=== PATIENT | male | born 1960 | race Caucasian/White ===

== ENCOUNTER 2017-07-21 09:35 | Emergency (ER) | payer BC, OTHER ==
[2017-07-21 09:58] VITALS: BP 149/64; PULSE 64; TEMP 97.7; BMI 31.3
--- NOTE | 2017-07-21 12:57 | PDOC ---
History of Present Illness - General Chief Complaint: Injury Stated Complaint: PAIN/ LT SHOULDER, BACK Time Seen by Provider: 07/21/17 11:02 History Source: Patient Exam Limitations: No Limitations - History of Present Illness Initial Comments: Patient is a 57-year-old male with history of back problems presents emergency department for evaluation of right lateral upper posterior back pain. He reports was working and stepping up onto a bucket and the bucket gave way, he fell against wall hitting his right scapula against a wall. Denies any other injury. No shoulder pain, no neck pain. States ," My back got caught against the wall" ] Past Medical History: [Denies]. Allergies: No known allergies Medications: [Denies] Family History: Non-contributory Social History: Denies smoking, alcohol use, or IVDU Review of Systems GENERAL/CONSTITUTIONAL: [No fever or chills. No weakness. No weight change.] HEAD, EYES, EARS, NOSE AND THROAT: [No change in vision. No ear pain or discharge. No sore throat. ] CARDIOVASCULAR: [No chest pain or shortness of breath.] RESPIRATORY: [No cough, wheezing, or hemoptysis.] GASTROINTESTINAL: [No nausea, vomiting, diarrhea or constipation. No rectal bleeding.] GENITOURINARY: [No dysuria, frequency, or change in urination.] MUSCULOSKELETAL: [No joint or muscle swelling or pain. No neck pain, Right scapula pain.] SKIN: [No rash or easy bruising.] NEUROLOGIC: [No headache, vertigo, loss of consciousness, or loss of sensation.] PSYCHIATRIC: [No depression or anxiety.] ENDOCRINE: [No increased thirst. No abnormal weight change.] HEMATOLOGIC/LYMPHATIC: [No anemia, easy bleeding, or history of blood clots.] ALLERGIC/IMMUNOLOGIC: [No hives or skin allergy. No latex allergy.] Physical Exam: GENERAL: [The patient is awake, alert, and fully oriented, in no acute distress. ] HEAD: [Normal with no signs of trauma.] EYES: [Pupils equal, round and reactive to light, extraocular movements intact, sclera anicteric, conjunctiva clear.] ENT: [Ears normal, nares patent, oropharynx clear without exudates. Moist mucous membranes. No uvula deviation] NECK: [Normal range of motion, supple without lymphadenopathy, JVD, or masses.] LUNGS: [Breath sounds equal, clear to auscultation bilaterally. No wheezes, and no crackles.] HEART: [Regular rate and rhythm, normal S1 and S2 without murmur, rub or gallop. ] ABDOMEN: [Soft, nontender, normoactive bowel sounds. No guarding, no rebound. No masses. No bruising or abrasions] MUSCULOSKELETAL: [Normal range of motion, no edema. No clubbing or cyanosis. No cords, erythema, or tenderness. No CVA Tenderness with fist. Pain on palpation to the right scapula with no deformity, good ROM to the right shoulder with scapula pain. ] NEUROLOGICAL: [Cranial nerves II through XII grossly intact. Normal speech, normal gait.] PSYCH: [Normal mood, normal affect.] SKIN: [Warm, Dry, normal turgor, no rashes or lesions noted. No erythema, edema or bruising. ] Past History - Past Medical History Allergies/Adverse Reactions: Allergies Allergy/AdvReac Type Severity Reaction Status Date / Time No Known Allergies Allergy Verified 07/21/17 09:55 Home Medications: Ambulatory Orders Tramadol HCl 50 mg PO TID #14 tablet MDD 3 07/21/17 COPD: No Other medical history: back problems - Suicide/Smoking/Psychosocial Hx Smoking History: Never smoked Information on smoking cessation initiated: No Hx Alcohol Use: No Drug/Substance Use Hx: No Substance Use Type: None *Physical Exam - Vital Signs Last Vital Signs Temp Pulse Resp BP Pulse Ox 97.7 F 64 18 149/64 98 07/21/17 09:55 07/21/17 09:55 07/21/17 09:55 07/21/17 09:55 07/21/17 09:55 ED Treatment Course - RADIOLOGY Radiology Studies Ordered: Category Date Time Status RIBS-LEFT SIDE [RAD] Stat Radiology 07/21/17 11:11 Completed SCAPULA [RAD] Stat Radiology 07/21/17 11:10 Completed Medical Decision Making - Medical Decision Making 07/21/17 17:48 A/P: Patient status post mechanical fall there is pain to right scapula with good range of motion to her shoulder with associated pain. X-rays of scapula and ribs negative for acute fracture or dislocation. Arm sling given to patient because of increased pain will DC patient on Naprosyn with strict follow-up. I discussed the physical exam findings, ancillary test results and final diagnoses with the patient. I answered all of the patient's questions. The patient was satisfied with the care received and felt comfortable with the discharge plan and treatment plan. The patient will call to arrange follow-up and will return to the Emergency Department with any new, persistent or worsening symptoms. 07/21/17 17:50 *DC/Admit/Observation/Transfer Diagnosis at time of Disposition: Pain in scapula Fall Qualifiers: Encounter type: initial encounter Qualified Code(s): W19.XXXA - Unspecified fall, initial encounter - Discharge Dispostion Disposition: HOME Condition at time of disposition: Stable Admit: No - Prescriptions Prescriptions: Tramadol HCl 50 mg PO TID #14 tablet MDD 3 - Referrals Referrals: Fabiana Jesus MD [Primary Care Provider] - Jn Woods MD [Staff Physician] - - Patient Instructions Additional Instructions: 1. Please return to the emergency department with any numbness, tingling, weakness, numbness or tingling to groin or legs, or loss of bowel or bladder function. 2. Use pain medication as ordered. 3. Please is to followup in the office of [Chuck] for evaluation within a week if no improvement. 4. Ice or heat 5. Refrain from lifting anything above 10 pounds, until pain resolved. - Post Discharge Activity Forms/Work/School Notes: Back to Work
== END 2017-07-21 13:01 | disposition home or self-care (01) ==
LOC: JERFT 09:35
DX: M25.512 Pain in left shoulder (principal); W01.198A Fall on same level from slipping, tripping and stumbling with subsequent striking against other object, initial encounter; Y93.H9 Activity, other involving exterior property and land maintenance, building and construction; Y92.218 Other school as the place of occurrence of the external cause; Y99.0 Civilian activity done for income or pay
CPT/HCPCS: 71101-TC; 73010-TC; 99281-25

== ENCOUNTER 2017-10-01 07:45 | Day surgery (SDC) | payer BC, OTHER ==
[2017-09-24 12:16] VITALS: BMI 29.0
[2017-10-01] MEDS ORDERED: PROPOFOL 20 ML ONE ×2 (07:48)
[2017-10-01] MEDS ORDERED: LIDOCAINE HCL/PF 2% SDV 5ML VIAL ONE (07:48)
[2017-10-01 10:22] VITALS: BP 118/65; PULSE 80; TEMP 98
== END 2017-10-01 10:15 | disposition home or self-care (01) ==
LOC: FASU-ENDO 07:45
PROVIDERS: ATTEND Internal Medicine Gastroenterology
PROC: 0DJD8ZZ Inspection of Lower Intestinal Tract, Via Natural or Artificial Opening Endoscopic (ICD-10-PCS; principal; 2017-10-01 09:11)
DX: K62.4 Stenosis of anus and rectum (principal); K64.8 Other hemorrhoids

== ENCOUNTER 2021-10-29 11:23 | Day surgery (SDC) | payer BC ==
[2021-10-23 11:47] VITALS: BMI 29.7
[~2021-10-29 11:23] MED LIST: VANCOMYCIN 1,000 MG VIAL (RESTRICTED TO ID ONLY) IVPB ONE
[2021-10-29] MEDS ORDERED: CEFAZOLIN 2 GM in DEXTROSE 5%-WATER - 50 ML IVPB ONE (13:20)
[2021-10-29] MEDS ORDERED: CELECOXIB 200 MG CAPSULE PO ONE ×2 (13:20→13:25)
[2021-10-29] MEDS ORDERED: TRANEXAMIC ACID 1000 MG/10 ML VIAL IVPUSH ONE (13:20)
[2021-10-29] MEDS ORDERED: MIDAZOLAM HCL 2 MG/2 ML SINGLE DOSE VIAL ONE (14:46)
[2021-10-29] MEDS ORDERED: ROPIVACAINE HCL/PF 100 MG/20 ML VIAL ONE (14:47)
[2021-10-29] MEDS ORDERED: VANCOMYCIN 1,000 MG VIAL (RESTRICTED TO ID ONLY) ONE (15:23)
[2021-10-29] MEDS ORDERED: ceFAZolin SODIUM 1 GM VIAL ONE (15:23)
[2021-10-29] MEDS ORDERED: oxyCODONE HCL 5 MG TABLET PO PRN (15:49)
[2021-10-29] MEDS ORDERED: ACETAMINOPHEN 1000 MG/100 ML BAG IVPB ONE (15:49)
[2021-10-29] MEDS ORDERED: PROPOFOL 20 ML ONE (16:12)
[2021-10-29] MEDS ORDERED: ACETAMINOPHEN INJECTION 100 ML IVPB ONE (18:45)
[2021-10-29] MEDS: CEFAZOLIN 1 GM in DEXTROSE 5%-WATER - 50 ML IVPB SCH (22:06)
[2021-10-29] MEDS: ACETAMINOPHEN 500 MG TABLET (FP) PO SCH (22:06)
[2021-10-29] MEDS: oxyCODONE HCL 5 MG TABLET PO PRN (22:17)
[2021-10-30] MEDS: ACETAMINOPHEN 500 MG TABLET (FP) PO SCH ×2 (04:06→10:18)
[2021-10-30] MEDS: oxyCODONE HCL 5 MG TABLET PO PRN ×2 (04:36→10:18)
[2021-10-30] MEDS: CEFAZOLIN 1 GM in DEXTROSE 5%-WATER - 50 ML IVPB SCH (05:59)
[2021-10-30 06:16] VITALS: BP 128/68; PULSE 86; TEMP 97.8
[2021-10-30] MEDS ORDERED: MAG HYDROX/AL HYDROX/SIMETH 30 ML UNIT-DOSE CUP PO PRN (09:11)
[2021-10-30] MEDS ORDERED: ONDANSETRON 4 MG/2 ML VIAL IVPUSH PRN (09:11)
[2021-10-30] MEDS ORDERED: ceFAZolin 2 GRAM PREMIX BAG IVPB SCH (09:12)
[2021-10-30] MEDS ORDERED: LACTATED RINGERS SOLUTION 1,000 ML IV SCH (09:15)
[2021-10-30] MEDS ORDERED: ASPIRIN 325 MG TABLET PO SCH (09:45)
[2021-10-30] MEDS ORDERED: SENNOSIDES/DOCUSATE COMBO (SENNA PLUS) TABLET (UD) PO SCH (10:00)
== END 2021-10-30 13:06 | disposition home health service (06) ==
LOC: FASUSAT 11:23 → FM/S 20:06 → FASUSAT 10-30 13:06
PROVIDERS: ATTEND Orthopaedic Surgery
PROC: 8E0YXBZ Computer Assisted Procedure of Lower Extremity (ICD-10-PCS; 2021-10-29)
PROC: 8E0W0CZ Robotic Assisted Procedure of Trunk Region, Open Approach (ICD-10-PCS; 2021-10-29)
PROC: 0SR90J9 Replacement of Right Hip Joint with Synthetic Substitute, Cemented, Open Approach (ICD-10-PCS; principal; 2021-10-29 16:27)
DX: M16.11 Unilateral primary osteoarthritis, right hip (principal)
CPT/HCPCS: 20985; 27130; C1776; S2900; 73502-TC-RT-FY; 88305-TC; 88311-TC; 94760; 97010-GP; 97116-GP; 97162-GP; C9803-CS; U0003; U0005

== ENCOUNTER 2022-03-11 06:48 | Day surgery (SDC) | payer BC ==
[2022-03-10 08:59] VITALS: BMI 29.7
[2022-03-11] MEDS ORDERED: CEFAZOLIN 2 GM in DEXTROSE 5%-WATER - 50 ML IVPB ONE (07:36)
[2022-03-11] MEDS ORDERED: CELECOXIB 200 MG CAPSULE PO ONE ×2 (08:00→09:30)
[2022-03-11] MEDS ORDERED: ceFAZolin SODIUM 1 GM VIAL ONE (08:21)
[2022-03-11] MEDS ORDERED: VANCOMYCIN 1,000 MG VIAL (RESTRICTED TO ID ONLY) ONE (08:22)
[2022-03-11] MEDS ORDERED: PROPOFOL 20 ML ONE ×2 (08:43→10:26)
[2022-03-11] MEDS ORDERED: SUCCINYLCHOLINE CHLORIDE 200 MG/10 ML SYRINGE ONE (08:43)
[2022-03-11] MEDS ORDERED: DEXMEDETOMIDINE HCL 200 MCG/2 ML IVPB ONE (08:48)
[2022-03-11] MEDS ORDERED: LIDOCAINE 1% P/F 10 MG/ML VIAL ONE (08:48)
[2022-03-11] MEDS ORDERED: MIDAZOLAM HCL 2 MG/2 ML SINGLE DOSE VIAL ONE (08:49)
[2022-03-11] MEDS ORDERED: FENTANYL CITRATE/PF 50 MCG/ML VIAL ONE (08:49)
[2022-03-11] MEDS ORDERED: ROPIVACAINE HCL/PF 100 MG/20 ML VIAL ONE (08:49)
[2022-03-11] MEDS ORDERED: BUPIVACAINE HCL/PF 0.5% (5MG/ML) 10 ML VIAL ONE (08:50)
[2022-03-11] MEDS ORDERED: SODIUM CHLORIDE 0.9% P/F 10 ML VIAL IJ ONE (09:05)
[2022-03-11] MEDS ORDERED: TRANEXAMIC ACID 1000 MG/10 ML VIAL IVPUSH ONE (09:30)
[2022-03-11] MEDS ORDERED: MAG HYDROX/AL HYDROX/SIMETH 30 ML UNIT-DOSE CUP PO PRN (10:07)
[2022-03-11] MEDS ORDERED: ONDANSETRON 4 MG/2 ML VIAL IVPUSH PRN ×2 (10:07→11:46)
[2022-03-11] MEDS ORDERED: LACTATED RINGERS SOLUTION 1,000 ML IV SCH (10:15)
[2022-03-11] MEDS ORDERED: ePHEDrine SULFATE 50 MG/1 ML AMPULE ONE (10:29)
[2022-03-11] MEDS: KETOROLAC TROMETHAMINE 30 MG/1 ML VIAL IVPUSH SCH ×2 (12:00→17:44)
[2022-03-11] MEDS: ACETAMINOPHEN 500 MG TABLET (FP) PO SCH ×2 (12:06→17:45)
[2022-03-11] MEDS ORDERED: DEXTROSE 5%-WATER 100 ML IVPB ONE ×2 (17:34→20:38)
[2022-03-11] MEDS ORDERED: CEFAZOLIN SODIUM 2 GM VIAL ONE ×2 (17:34→20:39)
[2022-03-11] MEDS: CEFAZOLIN SODIUM 2 GM in DEXTROSE 5%-WATER 100 ML IVPB SCH (17:44)
[2022-03-11] MEDS: SENNOSIDES/DOCUSATE COMBO (SENNA PLUS) TABLET (UD) PO SCH (21:13)
[2022-03-11] MEDS: oxyCODONE HCL 5 MG TABLET PO PRN (21:16)
[2022-03-11] MEDS ORDERED: ATORVASTATIN CA 10 MG TABLET (FP) PO SCH (22:00)
[2022-03-12] MEDS ORDERED: DEXTROSE 5%-WATER 100 ML IVPB ONE (01:51)
[2022-03-12] MEDS: CEFAZOLIN SODIUM 2 GM in DEXTROSE 5%-WATER 100 ML IVPB SCH (02:47)
[2022-03-12] MEDS: oxyCODONE HCL 5 MG TABLET PO PRN ×3 (06:53→13:48)
[2022-03-12] MEDS ORDERED: ASPIRIN 325 MG TABLET PO SCH (08:00)
[2022-03-12 08:28] LABS: HEMATOCRIT 37.2 % (35.4-49); HEMOGLOBIN 13.1 G/dL (11.7-16.9); MCH 32.7 pg (25.7-33.7); MCHC 35.1 g/dl (32.0-35.9); MEAN PLT VOLUME 7.7 fl (7.5-11.1); PLATELET COUNT 247.6 10^3/uL (134-434); RDW 13.4 % (11.9-15.9); WHITE BLOOD COUNT 8.8 10^3/uL (4.0-10.8)
[2022-03-12] MEDS: ACETAMINOPHEN 500 MG TABLET (FP) PO SCH (09:10)
[2022-03-12] MEDS ORDERED: MULTIVITAMINS (DAILY MVI) TABLET (FP) PO SCH (10:00)
[2022-03-12] MEDS ORDERED: PANTOPRAZOLE 40 MG TABLET PO SCH (10:00)
[2022-03-12] MEDS: SENNOSIDES/DOCUSATE COMBO (SENNA PLUS) TABLET (UD) PO SCH (10:31)
[2022-03-12 14:09] VITALS: BP 125/62; PULSE 87; TEMP 98.6
== END 2022-03-12 15:03 | disposition home health service (06) ==
LOC: FASUSAT 06:48 → FM/S 13:29 → FASUSAT 03-12 15:03
PROVIDERS: ATTEND Orthopaedic Surgery
PROC: 8E0YXBZ Computer Assisted Procedure of Lower Extremity (ICD-10-PCS; 2022-03-11)
PROC: 8E0Y0CZ Robotic Assisted Procedure of Lower Extremity, Open Approach (ICD-10-PCS; 2022-03-11)
PROC: 0SR90JA Replacement of Right Hip Joint with Synthetic Substitute, Uncemented, Open Approach (ICD-10-PCS; principal; 2022-03-11 10:26)
DX: M16.11 Unilateral primary osteoarthritis, right hip (principal)
CPT/HCPCS: 20985; 27130; C1776; S2900; 36415; 73502-TC-LT-FY; 85027; 88305-TC; 88311-TC; 94760; 97010-GP; 97116-GP; 97161-GP

== ENCOUNTER 2022-03-29 10:29 | Emergency (ER) | payer BC ==
[2022-03-29 10:48] VITALS: BP 129/73; PULSE 87; RESP 16; TEMP 99; BMI 29.0
== END 2022-03-29 13:20 | disposition home or self-care (01) ==
LOC: JERFT 10:29
DX: M25.572 Pain in left ankle and joints of left foot (principal)
CPT/HCPCS: 73610-TC-LT-FY; 99283-25

== ENCOUNTER 2023-08-08 13:14 | Emergency (ER) | payer BC ==
[2023-08-08 13:21] VITALS: BP 166/87; PULSE 88; RESP 18; TEMP 98.5; BMI 29.0
[2023-08-08 14:54] LABS: HEMATOCRIT 34.4 % (35.4-49); HEMOGLOBIN 11.4 G/dL (11.7-16.9); MCH 31.5 pg (25.7-33.7); MCHC 33.2 g/dl (32.0-35.9); MEAN CELL VOLUME 94.7 fl (80-96); MEAN PLT VOLUME 7.9 fl (7.5-11.1); PLATELET COUNT 229.6 10^3/uL (134-434); RBC 3.63 10^6/uL (4.00-5.60); RDW 13.9 % (11.9-15.9); WHITE BLOOD COUNT 9.1 10^3/uL (4.0-10.8)
[2023-08-08 15:14] LABS: ALBUMIN 3.7 g/dl (3.4-5.0); BILIRUBIN,TOTAL 0.4 mg/dl (0.2-1); CREATININE 2.3 mg/dl (0.6-1.3); POTASSIUM 4.9 mmol/L (3.5-5.1); TOT PROT 6.9 g/dl (6.4-8.2)
[2023-08-08 15:19] LABS: PLATELET ESTIMATE ADEQUATE
[2023-08-08 16:27] LABS: AMORP URATES MODERATE /hpf (NONE SEEN)
== END 2023-08-08 16:22 | disposition home or self-care (01) ==
LOC: FER 13:14
DX: R33.9 Retention of urine, unspecified (principal); R10.30 Lower abdominal pain, unspecified
CPT/HCPCS: 36415; 80053; 81003; 81015; 85027; 87086; 99283-25

== ENCOUNTER 2023-08-10 17:16 | Emergency (ER) | payer BC ==
[2023-08-10 17:40] VITALS: BP 168/72; PULSE 91; RESP 18; TEMP 97.8; BMI 29.0
== END 2023-08-10 17:50 | disposition home or self-care (01) ==
LOC: FER 17:16
PROC: 0T2BX0Z Change Drainage Device in Bladder, External Approach (ICD-10-PCS; principal; 2023-08-10)
DX: R10.30 Lower abdominal pain, unspecified (principal); R14.0 Abdominal distension (gaseous); T83.091A Other mechanical complication of indwelling urethral catheter, initial encounter
CPT/HCPCS: 99282-25

== ENCOUNTER 2024-01-02 08:05 | Emergency (ER) | payer BC ==
[2024-01-02 08:18] VITALS: BP 129/75; PULSE 98; RESP 20; TEMP 98.2; BMI 29.7
[2024-01-02] MEDS ORDERED: predniSONE 20 MG TABLET (UD) ONE (09:19)
[2024-01-02] MEDS ORDERED: COLCHICINE 0.6 MG TAB ONE (09:19)
[2024-01-02] MEDS: COLCHICINE 0.6 MG TAB PO ONE (09:21)
[2024-01-02] MEDS: predniSONE 20 MG TABLET (UD) PO ONE (09:21)
== END 2024-01-02 09:34 | disposition home or self-care (01) ==
LOC: FER 08:05
DX: M10.9 Gout, unspecified (principal); M25.571 Pain in right ankle and joints of right foot; M25.471 Effusion, right ankle; X50.1XXA Overexertion from prolonged static or awkward postures, initial encounter
CPT/HCPCS: 73610-TC-RT-FY; 73630-TC-RT-FY; 99283-25